=== PATIENT | female | born 1955 | race Caucasian/White ===

== ENCOUNTER 2016-09-16 09:51 | Emergency (ER) | payer BC ==
[2016-09-16] MEDS ORDERED: Ketorolac INJ* 60 MG/2 ML VIAL IM ONE (11:49)
[2016-09-16 11:57] VITALS: BP 133/90
[2016-09-16] MEDS ORDERED: Aspirin Low Dose CHEW TAB* 81 MG ONE (12:04)
[2016-09-16] MEDS ORDERED: Aspirin Low Dose CHEW TAB* 81 MG PO ONE (12:04)
[2016-09-16] MEDS ORDERED: NS 0.9% 1000 ML* 1,000 ML IV SCH (12:15)
--- NOTE | 2016-09-16 12:36 | UC ---
Cardiac HPI - HPI Summary HPI Summary: pt presents with c/o left chest and flank pain, that that began last night and woke her from sleep. Pt deneis injury or trauma, urinary symptoms, hematuria, frequency, urgency or dysuria. pt c/o generalized malaise, and migraine alegria. - History of Current Complaint Chief Complaint: UCGeneralIllness Stated Complaint: LFT SIDE RIB AREA/BACK PAIN Time Seen by Provider: 09/16/16 11:34 - Risk Factors Pulmonary Embolism Risk Factors: Smoking - 40+ years 1-2 ppd Cardiac Risk Factors: Smoking Atrial Fibrillation: Negative TAD Risk Factors: Smoking AMI/ACS Risk Factors: Smoking - Allergy/Home Medications Allergies/Adverse Reactions: Allergies Allergy/AdvReac Type Severity Reaction Status Date / Time No Known Allergies Allergy Verified 09/16/16 11:15 Home Medications: Home Medications Mometasone/Formoter 200/5 MDI* [Dulera 200/5 MDI*] 2 puff INH BID 09/16/16 [ History Confirmed 09/16/16] PMH/Surg Hx/FS Hx/Imm Hx Previously Healthy: Yes - smoker, anorexic in appearance Respiratory History: COPD - possible given smoking history - Surgical History Surgical History: Yes Surgery Procedure, Year, and Place: TONSILLECTOMY A CHILD - Family History Known Family History: Positive: Cardiac Disease - Social History Lives: With Family Alcohol Use: None Substance Use Type: Marijuana Substance Use Comment - Amount & Last Used: OCCASIONAL Smoking Status (MU): Heavy Every Day Tobacco Smoker Type: Cigarettes Amount Used/How Often: 1 ppd Length of Time of Smoking/Using Tobacco: 48 yrs Have You Smoked in the Last Year: Yes Household Exposure Type: Cigarettes Review of Systems Constitutional: Chills, Fatigue, Other - pale, anorexic, 45 kg for weight Skin: Negative Eyes: Negative ENT: Negative Respiratory: Negative Cardiovascular: Chest Pain - chest and flank Gastrointestinal: Negative Genitourinary: Other - left side flank Motor: Negative Neurovascular: Negative Musculoskeletal: Negative Neurological: Headache - migraine Psychological: Negative All Other Systems Reviewed And Are Negative: Yes Physical Exam Triage Information Reviewed: Yes Appearance: Ill-Appearing, Thin Vital Signs: Initial Vital Signs Temp 100 F 09/16/16 11:16 Pulse 110 09/16/16 11:16 Resp 24 09/16/16 11:16 BP 133/90 09/16/16 11:16 Pulse Ox 95 06/05/17 11:16 Vital Signs Reviewed: Yes Eye Exam: Normal Neck exam: Normal Respiratory: Positive: Decreased breath sounds - bilateral bases Cardiovascular Exam: Other Cardiovascular: Positive: Tachycardia, Other: - tachy, irrgualr atrial sound, possible a fib. Abdominal Exam: Other Abdomen Description: Positive: CVA Tenderness (L) Musculoskeletal Exam: Normal Neurological Exam: Normal Psychological Exam: Normal Skin Exam: Normal - Assessment/Plan Course Of Treatment: I ordered an EKG and reviewed it with DR. Carroll, Concern for ST depression in leads 2, 3 and AVF. Also, slight elevation in lead V! and V@. I paged plater apprentice on calll: Dr Armenta for reivew as no prior EKG to compare, he concurrd with findings by DR. Carroll and encouraged transfer to [facility] for Cardio/hemo intervention. I called [facility] ED and spoke with Dr. Stover and agreed with cArdiac findings with EKG and accpeted pt for transfer. - Differential Diagnoses - Chest Pain Differential Diagnosis/HQI/PQRI: Acute SD, Other: - Possible inferior wall SD - Differential Diagnoses - Hypertension Differential Diagnosis/HQI PQRI: Myocardial Infarction, Other - kidney stone - Clinical Impression Provider Diagnoses: possible SD. abnormal EKG. left side chest pain. left side flank pain - Physician Notifications Discussed Patient Care With: Dr. Stover Time Discussed With Above Provider: 12:30 - pt accepted for transfer Instructed by Provider To: Transfer - to [facility] by ambulance ALS Discharge - Discharge Plan Condition: Stable Disposition: TRANS HIGHER LVL OF CARE FAC Patient Education Materials: Tachycardia (ED), Chest Pain (ED), Flank Pain (ED ) Referrals: Lucita Mohamud PA [Primary Care Provider] - If Needed
--- NOTE | 2016-09-16 12:37 | UC ---
Progress - Progress Note Progress Note: Prearrival report from PA at [facility]. Pt presented for flank pain. I looked at the EKG, discussed it with Dr. Armenta. We agreed not to activate STEMI team at this point, reassess on [place] [facility] and[place]or EKG from EMS.
== END 2016-09-16 12:39 | disposition short-term general hospital (02) ==
LOC: UCCORT 09:51
DX: R07.89 Other chest pain (principal); M54.9 Dorsalgia, unspecified; R53.81 Other malaise; G43.909 Migraine, unspecified, not intractable, without status migrainosus; J44.9 Chronic obstructive pulmonary disease, unspecified; R00.0 Tachycardia, unspecified; F17.210 Nicotine dependence, cigarettes, uncomplicated; F12.90 Cannabis use, unspecified, uncomplicated
CPT/HCPCS: 93005; 96360; 96361; 99213; A9270-GY; G0463

== ENCOUNTER 2016-09-16 13:10 | Observation (INO) | payer BC ==
[2016-09-16] MEDS ORDERED: Aspirin Low Dose CHEW TAB* 81 MG PO ONE (13:29)
[2016-09-16] MEDS ORDERED: Nitroglycerin TAB 0.4 MG* 0.4 MG TAB SL ONE (13:45)
--- NOTE | 2016-09-16 13:53 | RAD ---
HISTORY: Chest pain COMPARISONS: None VIEWS:1: Single frontal portable view of the chest at 1:35 PM FINDINGS: LINES AND TUBES: None. CARDIOMEDIASTINAL SILHOUETTE: The cardiomediastinal silhouette is normal for portable technique. PLEURA: The costophrenic angles are sharp. No pleural abnormalities are noted. LUNG PARENCHYMA: There is hyperinflation. There is confluent alveolar opacification of the left lower lung field ABDOMEN: The upper abdomen is clear. There is no subphrenic gas. BONES AND SOFT TISSUES: No bone or soft tissue abnormalities are noted. IMPRESSION: 1. COPD.. 2. LEFT LOWER LUNG ATELECTASIS VERSUS CONSOLIDATION. RECOMMEND FOLLOW-UP UNTIL RESOLUTION TO EXCLUDE UNDERLYING PULMONARY PARENCHYMAL PATHOLOGY
[2016-09-16 13:54] LABS: Mean Corpuscular Hemoglobin 30 pg (27-31)
[2016-09-16 13:59] LABS: Hematocrit 44 % (35-47); Hemoglobin 14.4 g/dl (12.0-16.0); Mean Corpuscular HGB Conc 33 g/dl (31-36); Mean Corpuscular Volume 90 fL (80-97); Mean Platelet Volume 8 um3 (7.4-10.4); Red Blood Count 4.84 10^6/ul (4.0-5.4); Red Cell Distribution Width 13 % (10.5-15); White Blood Count 20.7 10^3/ul (3.5-10.8)
[2016-09-16 14:01] LABS: Add Diff/Slide Review? Slide Review Added; Comments Flag Yes
[2016-09-16 14:40] LABS: ALT 21 U/L (7-52); Alkaline Phosphatase 105 U/L (34-104); BUN/Creatinine Ratio 13.7 (8-20); Blood Urea Nitrogen 10 mg/dL (6-24); CO2 Carbon Dioxide 22 mmol/L (22-32); Calcium 9.3 mg/dL (8.6-10.3); Chloride 99 mmol/L (101-111); EGFR African American 104.9 (>60); EGFR Non-African American 81.6 (>60); Globulin 2.8 g/dL (2-4); Glucose 96 mg/dL (70-100); Sodium 132 mmol/L (133-145); Total Protein 6.8 g/dL (6.4-8.9)
[2016-09-16] MEDS ORDERED: Iohexol 350* (CONTRAST) 500 ML MDV IV ONE (14:48)
--- NOTE | 2016-09-16 15:35 | RAD ---
INDICATION: Pleuritic chest pain. Assess for pulmonary embolism. History of tobacco use and hypertension. COMPARISON: September 16, 2016 chest radiograph TECHNIQUE: Multidetector CT images were obtained from the lung apices to the upper abdomen with 50 mL Omnipaque 350 IV contrast. Pulmonary angiogram protocol. Multiplanar reformation including with maximum intensity projection. REPORT: Elevated lung volumes with mildly coarse interstitial markings and patchy rarefaction secondary to emphysema. 3 mm subpleural nodule junction superior and posterior basal segments RIGHT lower lobe. Consolidation with air bronchograms involving the posterior and lateral basal segments of the LEFT lower lobe. Negative for pleural effusions. Negative for pneumothorax. Negative for lymphadenopathy, cardiomegaly, pericardial effusion. Normal diameter thoracic aorta. Negative for aortic dissection. No filling defects are identified from the main to the subsegmental pulmonary arteries to indicate presence of a pulmonary embolism. Unremarkable Limited images through the upper abdomen. Negative for suspicious focal osseous lesions. IMPRESSION: 1. No evidence for pulmonary embolism. 2. LEFT lower lobe pneumonia primarily involving the posterior lateral basal segments. Radiographic follow-up post therapy suggested to assess for resolution 3. Relative low suspicion 3 mm subpleural nodule at the junction of the superior and posterior basal segments of the RIGHT lower lobe. Given smoking history/risk factor for bronchogenic carcinoma reassessment with noncontrast CT in 12 months time suggested. 4. Stigmata of advanced chronic obstructive pulmonary disease and emphysema. Ref: Michelle H, Amilcar HALL, Danyel Pickett, et al. Guidelines for Management of Small Pulmonary Nodules Detected on CT Scans: A Statement from the Fleischner Society. February 2005 Radiology, 237, [phone].
[2016-09-16] MEDS ORDERED: Azithromycin IV(*) 500 MG in NS 0.9% 250 ML* 250 ML IVPB ONE (15:45)
[2016-09-16] MEDS ORDERED: Morphine INJ* 2 MG/ML 1 ML SYRINGE IV PRN (15:56)
[2016-09-16] MEDS ORDERED: Acetaminophen TAB* 325 MG PO PRN (15:56)
[2016-09-16] MEDS ORDERED: Albuterol/Ipratropium NEB.SOL* Albuterol 2.5 MG/Ipratropium 0.5 MG 3 ML INH PRN (16:17)
[2016-09-16] MEDS ORDERED: NS 0.9% 1000 ML* 1,000 ML IV SCH (16:30)
[2016-09-16] MEDS ORDERED: Nicotine PATCH 21 MG/24 HR* PATCH TRANSDERM SCH (17:00)
--- NOTE | 2016-09-16 18:29 | HP ---
HISTORY AND PHYSICAL: DATE OF ADMISSION: 09/16/16 PRIMARY CARE PHYSICIAN: JESÚS Odell CHIEF COMPLAINT: Left-sided chest pain and flank pain. HISTORY OF PRESENT ILLNESS: Santa Dobbins is a 61-year-old female with a history of current smoking and diagnosis of COPD who presented to [facility], complaining of left lower chest pain and radiating flank pain. The pain was positional, worse with inspiration. The patient also has had poor appetite and nightly fevers for the past 3 days. The patient was seen at [facility] where her EKG showed inferior wall ST depressions. At that point, she was transported via ambulance to the emergency department here. Here, her repeat EKG showed improvement of the ST depressions in the inferior leads. CT angiogram of the chest showed left lower lobe infiltrate. She is going to be admitted with diagnosis of pneumonia and EKG changes. PAST MEDICAL HISTORY: COPD. MEDICATIONS: Include Dulera 200/5 two inhalations b.i.d. ALLERGIES: No known drug allergies. FAMILY HISTORY: Father with history of dementia. The patient's mother's history is unknown. SOCIAL HISTORY: The patient has smoked pack of cigarettes a day when she turned 12 and she is still a current smoker. She denies any alcohol or drug use. 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 REVIEW OF SYSTEMS: Please see history of present illness. The patient's BMI is 16 and when I enquired about her recent weight loss, she stated that she has not lost her weight for approximately a year. She has chronic cough and apparently the cough that she has had in the past several days is actually less prominent than her chronic "smoker's cough" that she usually has. She has had poor appetite and feeling overall weak. Her left flank pain was noted approximately 3 days ago when the fever occurred. All the remaining 14 systems were reviewed with the patient and were otherwise negative. PHYSICAL EXAMINATION GENERAL: This is a very pleasant 61-year-old female who is in no acute distress. The patient is alert, awake, and oriented x3. VITAL SIGNS: Blood pressure of 135/83, heart rate of 88 and regular, respiratory rate 18, oxygen saturation 96% on room air, temperature of 101.8. HEENT: Head: Atraumatic, normocephalic. Eyes: Pupils equal, reactive to light, and accommodation. Oropharynx clear. Mucosa dry. NECK: Supple. No JVD. No bruits bilaterally. RESPIRATORY: Distant breath sounds bilaterally. CARDIOVASCULAR: Regular rate and rhythm. No murmur. ABDOMEN: Soft, nontender. Positive bowel sounds in all 4 quadrants. LOWER EXTREMITIES: There is no edema. Pulses +2 bilaterally. No cyanosis or clubbing. NEUROLOGIC EVALUATION: Speech clear. Cranial nerves II through XII grossly intact. Motor strength is 5/5 bilaterally. PSYCHIATRIC EVALUATION: Oriented x3. Pleasant and cooperative with evaluation with no evidence of anxiety or depression. Please note that the patient has a very thin body habitus. LABORATORY DATA: Show sodium of 132, potassium of 4.4, chloride 99, carbon dioxide 22, BUN 10, creatinine 0.73. Liver functions are unremarkable apart from alkaline phosphatase of 105. Troponin of 0. CBC: White blood cell count of 20.7, hemoglobin of 14.4, hematocrit of 44, and platelets of 179. IMAGING: The patient's CT angiogram of the chest, impression: "No evidence of PE. Left lower lobe pneumonia primarily involving the posterior basal segments. Radiographic followup ____ suggested for resolution. Relative low suspicion 3 mm subpleural nodule at the junction of the superior and posterior basal segment of the right lower lobe given smoking history, risk factors for bronchogenic carcinoma. Reassessment with noncontrast CT in 12 months suggested. Stigmata of advanced COPD and emphysema." The patient's EKG showed sinus arrhythmia with frequent PACs, heart rate of 97 beats per minute with T-wave depression in leads 2, 3, and aVF, less pronounced than the EKG that was obtained prior to this current one just within the past few hours. ASSESSMENT AND PLAN: 1. Left flank pain, daily fevers, and left chest pain: At this point, most likely related to the patient's pneumonia. The pain is positional. The infiltrate is localized in the left lung. The patient is going to be continued on ceftriaxone and azithromycin that was started in the emergency room. Sputum cultures are going to be obtained as well as urine Legionella and streptococcus pneumonia antigen. The patient is going to be placed on intravenous hydration. 2. In regards to the patient's abnormal EKG, the patient denies substernal chest pain. Her EKG appears to be rate related changes, but is still present when the patient's heart rate is lower. The patient has risk factors of smoking history and age. The patient is going to be placed on telemetry monitored bed with followup troponins. I will obtain a transthoracic echocardiogram. At this point due to her ongoing fevers and pneumonia, I will not place the patient on a stress test. The recommendation would be for the patient to have outpatient stress test when she feels better. 3. In regards to smoking, the patient was counseled to quit for approximately 4 - 1/2 minutes. The patient is going to be placed on nicotine replacement therapy. 4. For DVT prophylaxis, the patient is going to be placed on heparin subcutaneously. 5. The patient's code status is full. TIME SPENT: Approximately 62 minutes were spent on admission of this patient, more than half that time was spent [id number] with the patient during the interview and physical exam. CC: JESÚS Odell * [id number]/CPS #: [id number] MTDD
[2016-09-16] MEDS: Mometasone/Formoter 200/5 MDI INH SCH (19:48)
[2016-09-16] MEDS ORDERED: Nicotine Inhaler* 10 MG AMP INH PRN (20:55)
[2016-09-16] MEDS ORDERED: Mouth Piece, Nicotine* 1 EACH CARTRIDGE ONE (22:25)
[2016-09-16] MEDS: Heparin VIAL(*) 5000 UNITS/ML VIAL (FIVE THOUSAND) SUBCUT SCH (22:29)
[2016-09-17] MEDS: Heparin VIAL(*) 5000 UNITS/ML VIAL (FIVE THOUSAND) SUBCUT SCH (05:42)
[2016-09-17 08:20] LABS: Hematocrit 39 % (35-47); Mean Corpuscular HGB Conc 33 g/dl (31-36); Mean Corpuscular Hemoglobin 30 pg (27-31); Mean Corpuscular Volume 90 fL (80-97); Mean Platelet Volume 8 um3 (7.4-10.4); Red Blood Count 4.34 10^6/ul (4.0-5.4); Red Cell Distribution Width 14 % (10.5-15); White Blood Count 12.7 10^3/ul (3.5-10.8)
[2016-09-17 08:34] LABS: BUN/Creatinine Ratio 13.2 (8-20); Calcium 8.7 mg/dL (8.6-10.3); EGFR African American 113.9 (>60); EGFR Non-African American 88.6 (>60); Magnesium 1.9 mg/dL (1.9-2.7); Potassium 3.9 mmol/L (3.5-5.0)
[2016-09-17] MEDS ORDERED: Nicotine PATCH 21 MG/24 HR* PATCH TRANSDERM SCH (09:00)
--- NOTE | 2016-09-17 09:03 | ECHO ---
Patient: LISA CARVAJAL [facility] Rec#: [id number] : 1955 Date: 09/17/2016 Age: 61y Height: 160.02 cm / 63.0 in Weight: 43.09 kg / 95.0 lbs Sex: F BSA: 1.41 Room#: 447 Admit Date#: 09/16/2016 Type: Inpatient Referring: Jacqui Smith MD Reading: Ron Jara MD Associate Professor Of Forestry: Joanna OropezaRDCS,RDMS Transthoracic Echocardiogram Indication: CP, ABN EKG BP: 119/68 HR: 72 Rhythm: NSR Findings History: HTN, heavy smoker. Technical Comments: The study is technically limited due to poor acoustic windows. Completed 0840. Left Ventricle: The left ventricular chamber size is decreased. There is no left ventricular hypertrophy. Global left ventricular wall motion and contractility are within normal limits. The estimated ejection fraction is 55-60%. There is no consistent Doppler evidence of clinically significant diastolic dysfunction. Left Atrium: The left atrial chamber size is normal. Right Ventricle: The right ventricular chamber size and systolic function are within normal limits. Right Atrium: The right atrium is not well visualized. Aortic Valve: The aortic valve structure is not well visualized. There is no evidence of aortic valve thickening. There is no evidence of aortic regurgitation. There is no evidence of aortic stenosis. Mitral Valve: The mitral valve leaflets appear normal. There is no evidence of mitral regurgitation. There is no evidence of mitral stenosis. Tricuspid Valve: The tricuspid valve structure is not well visualized.Best seen in subcostal views. The tricuspid valve leaflets are mildly thickened. There is mild to moderate tricuspid regurgitation. There is evidence of mild to moderate pulmonary hypertension. Pulmonic Valve: There is no evidence of pulmonic valve thickening. There is no evidence of pulmonic regurgitation. Pericardium: There is no significant pericardial effusion. Aorta: The ascending aorta is not well visualized. The aortic arch is not well visualized. The aortic root is normal in size. Pulmonary Artery: The main pulmonary artery is not well visualized. Venous: The inferior vena cava appears normal in size. There is a greater than 50% respiratory change in the inferior vena cava dimension. Conclusions The study is technically limited due to poor acoustic windows. Completed 0840. Global left ventricular wall motion and contractility are within normal limits. The estimated ejection fraction is 55-60%. The right ventricular chamber size and systolic function are within normal limits. There is mild thickening of the tricuspid vavle leafltets with mild to moderate tricuspid regurgitation. There is evidence of mild to moderate pulmonary hypertension. No reports of prior studies are offered for comparison. Measurements Name Value Normal Range RVIDd (AP) 2D 2.2 cm (0.9 - 2.6) RVDdMajor (2D) 2 cm (2.2 - 4.4) RAd ISD 4CH 3.4 cm (3.4 - 4.9) RA (A4C)W 3.9 cm (2.9 - 4.6) IVSd (2D) 0.8 cm (0.6 - 1) LVPWd (2D) 0.7 cm (0.6 - 1) LVIDd (2D) 2.9 cm (3.6 - 5.4) LVIDs (2D) 2.3 cm - LV FS (2D) 20 % (25 - 45) Aortic Annulus 1.9 cm (1.4 - 2.6) Ao root diameter (2D) 2.9 cm (2.1 - 3.5) LA dimension (AP) 2D 2.1 cm (2.3 - 3.8) LAd ISD 4CH 3.7 cm (2.9 - 5.3) LA ISD 4CH W 3.9 cm (2.5 - 4.5) Name Value Normal Range MV E-wave Vmax 0.8 m/sec - MV deceleration time 233.8 msec - MV A-wave Vmax 0.6 m/sec - MV E:A ratio 1.4 ratio - LV lateral e' Vmax 0.08 m/sec - LV E:e' lateral ratio 10 ratio - Name Value Normal Range AV Vmax 1.1 m/sec - AV VTI 23.1 cm - AV peak gradient 5 mmHg - AV mean gradient 2.2 mmHg - LVOT Vmax 1 m/sec - LVOT VTI 20.8 cm - LVOT peak gradient 4 mmHg - LVOT mean gradient 1.9 mmHg - Name Value Normal Range TR Vmax 3 m/sec - TR peak gradient 36 mmHg - RAP 8 mmHg - RVSP 44 mmHg - IVC diameter 1.8 cm - Name Value Normal Range PV Vmax 0.7 m/sec - PV peak gradient 2 mmHg -
[2016-09-17] MEDS: Mometasone/Formoter 200/5 MDI INH SCH (09:21)
--- NOTE | 2016-09-17 10:10 | ED ---
edgard Giron Timothy, scribed for Bill Stover MD on 09/16/16 at 1329 . HPI Chest Pain - HPI Summary HPI Summary: Santa Dobbins is a 61 yo female presenting to [facility] for 2/10 intermittent left sided CP since yesterday evening, returning at 0600 this morning, sent here by [facility] for concern for STEMI. She states that movement and deep breaths increase her CP. She denies any pain in her back. She denies any recent illnesses or travel in a car or otherwise. Her MHx includes HTN, osteoperosis. - History of Current Complaint Time Seen by Provider: 09/16/16 13:10 Hx Obtained From: Patient, EMS Onset/Duration: Started Hours Ago, Still Present Time of Onset: 06:00 - returned this morning Timing: Intermittent Initial Severity: Moderate Current Severity: Moderate Pain Intensity: 2 Pain Scale Used: 0-10 Numeric Chest Pain Location: Left Lateral Chest Pain Radiates: No Aggravating Factor(s): Movement, Deep Breaths Associated Signs and Symptoms: Positive: Chest Pain - Allergy/Home Medications Allergies/Adverse Reactions: Allergies Allergy/AdvReac Type Severity Reaction Status Date / Time No Known Allergies Allergy Verified 09/16/16 11:15 PMH/Surg Hx/FS Hx/Imm Hx Cardiovascular History: Reports: Hx Hypertension Musculoskeletal History: Reports: Hx Osteoporosis Denies: Hx Rheumatoid Arthritis - Surgical History Surgery Procedure, Year, and Place: TONSILLECTOMY A CHILD Infectious Disease History: No Infectious Disease History: Denies: Traveled Outside the [place] in Last 30 Days - Family History Known Family History: Positive: Unknown - Pt cannot recall other FHx, Cardiac Disease - Social History Alcohol Use: None Substance Use Type: Reports: Marijuana Substance Use Comment - Amount & Last Used: daily usage Smoking Status (MU): Heavy Every Day Tobacco Smoker Type: Cigarettes Amount Used/How Often: 1 ppd Length of Time of Smoking/Using Tobacco: 48 yrs Have You Smoked in the Last Year: Yes Review of Systems Constitutional: Negative Negative: Fever, Chills Eyes: Negative Negative: Erythema ENT: Negative Negative: Sore Throat Positive: Chest Pain Respiratory: Negative Negative: Shortness Of Breath, Cough Gastrointestinal: Negative Negative: Abdominal Pain, Vomiting, Nausea Genitourinary: Negative Negative: dysuria, hematuria Musculoskeletal: Negative Negative: Myalgia, Edema - legs Skin: Negative Negative: Rash Neurological: Negative - no dizziness Psychological: Normal All Other Systems Reviewed And Are Negative: Yes Physical Exam - Summary Physical Exam Summary: Constitutional: Well-developed, Well-nourished, Alert. (-) Distressed Skin: Warm, Dry HENT: Normocephalic; Atraumatic Eyes: Conjunctiva normal Neck: Musculoskeletal ROM normal neck. (-) JVD, (-) Stridor, (-) Tracheal deviation Cardio: Rhythm regular, rate normal, Heart sounds normal; Intact distal pulses; The pedal pulses are 2+ and symmetric. Radial pulses are 2+ and symmetric. (-) Murmur. There is no reproducible chest pain with palpation. Pulmonary/Chest wall: Effort normal. (-) Respiratory distress, (-) Wheezes, (-) Rales. Extrememly diminished airflow Abd: Soft, (-) Tenderness, (-) Distension, (-) Guarding, (-) Rebound Musculoskeletal: (-) Edema Lymph: (-) Cervical adenopathy Neuro: Alert, Oriented x3 Psych: Mood and affect Normal Triage Information Reviewed: Yes Vital Signs On Initial Exam: Initial Vitals Temp Pulse Resp BP Pulse Ox 101.8 F 90 25 135/81 96 09/16/16 13:19 09/16/16 13:19 09/16/16 13:19 09/16/16 13:19 09/16/16 13:19 Vital Signs Reviewed: Yes Diagnostics - Vital Signs Vital Signs Temp Pulse Resp BP Pulse Ox 09/16/16 13:19 101.8 F 90 25 135/81 96 - Laboratory Result Diagrams: 09/16/16 12:15 09/16/16 13:20 Lab Statement: Any lab studies that have been ordered have been reviewed, and results considered in the medical decision making process. - Radiology CXR Xray Interpretation: Positive (See Comments) - IMPRESSION: 1. COPD.. 2. LEFT LOWER LUNG ATELECTASIS VERSUS CONSOLIDATION. RECOMMEND FOLLOW-UP UNTIL RESOLUTION TO EXCLUDE UNDERLYING PULMONARY PARENCHYMAL PATHOLOGY Radiology Interpretation Completed By: Radiologist - CT Chest/Thorax CTA CT Interpretation: Positive (See Comments) CT Interpretation Completed By: Radiologist - 1. No evidence for pulmonary embolism. 2. LEFT lower lobe pneumonia primarily involving the posterior lateral basal segments. Radiographic follow-up post therapy suggested to assess for resolution 3. Relative low suspicion 3 mm subpleural nodule at the junction of the superior and posterior basal segments of the RIGHT lower lobe. Given smoking history/risk factor for bronchogenic carcinoma reassessment with noncontrast CT in 12 months time suggested. 4. Stigmata of advanced chronic obstructive pulmonary disease and emphysema. - EKG 1314 Cardiac Rate: NL - 91 BPM EKG Interpretation: NSR @ 91 BPM, ST depressions in inferior leads, no STEMI Re-Evaluation - Re-Evaluation First Eval Re-Evaluation Time: 15:50 Change: Unchanged Comment: Reviewed lab and imaging study results, as well as recommendation of admission by Dr. Smith. Pt is agreeable to this plan. Chest Pain Course/Dx - Course Assessment/Plan: Santa Dobbins is a 61 yo female presenting to [facility] with 2/10 intermittent CP since yesterday evening, presenting to [facility] from [facility] for r/o STEMI. Her medication list has been reviewed this visit. In the ED course she received ASA and NTG. Her EKG suggests no STEMI, but ST depressions in inferior leads. Her CXR suggests COPD and left lower lung atelectasis versus consolidation with a recommendation for follow up to exclude underlying pulmonary parenchymal pathology. Her Chest/Thorax CTA suggests. 1. No evidence for pulmonary embolism. 2. LEFT lower lobe pneumonia primarily involving the posterior lateral basal segments. Radiographic follow-up post therapy suggested to assess for resolution. 3. Relative low suspicion 3 mm subpleural nodule at the junction of the superior and. posterior basal segments of the RIGHT lower lobe. Given smoking history/risk factor for. bronchogenic carcinoma reassessment with noncontrast CT in 12 months time suggested. 4. Stigmata of advanced chronic obstructive pulmonary disease and emphysema. After clinical examination and review of her lab and imaging studies , as well as discussion with Dr. Smith, she will be admitted to [facility] with community acquired PNA and abnormal EKG. - Diagnoses Provider Diagnoses: Community acquired pneumonia, EKG abnormalities - Provider Notifications Discussed Care Of Patient With: Jacqui Smith - Discussed Pt condition, accepts Pt for admission Time Discussed With Above Provider: 15:45 Discharge - Discharge Plan Condition: Stable Disposition: ADMITTED TO [facility] Discharge Disposition Comment: admission for community acquired pneumonia and EKG abnormalities The documentation as recorded by the edgard laguna Timothy accurately reflects the service I personally performed and the decisions made by , Bill Stover MD.
[2016-09-17 12:56] VITALS: BP 112/65
[2016-09-17] MEDS ORDERED: Azithromycin IV(*) 500 MG in NS 0.9% 250 ML* 250 ML IVPB SCH (16:00)
[2016-09-17] MEDS ORDERED: cefTRIAXone VIAL(*) 1,000 MG in NS 0.9% 50 ML* 50 ML IVPB SCH (17:00)
[2016-09-17] MEDS ORDERED: Nicotine Patch Removal NOTE PATCH OFF SCH (21:00)
--- NOTE | 2016-09-17 21:51 | DS ---
CC: JESÚS Odell * DISCHARGE SUMMARY: DATE OF ADMISSION: 09/16/16 DATE OF DISCHARGE: 09/17/16 PRIMARY CARE PROVIDER: JESÚS Odell DISCHARGE DIAGNOSES: 1. Left lower lobe pneumonia. 2. 3 mm subpleural nodule at right lower lobe. 3. Abnormal EKG. 4. Pleuritic chest pain due to pneumonia. SECONDARY DIAGNOSIS: Chronic obstructive pulmonary disease. MEDICATIONS AT DISCHARGE: Include: 1. Azithromycin 250 mg daily for a total of 4 days. 2. Cefdinir 300 mg b.i.d. for 7 days total. 3. Dulera 200/5 mcg 2 inhalations b.i.d., unchanged from home. LABORATORY DATA AND STUDIES: Performed during the hospital stay included: On 09/17/16, white blood cell count of 12.7, hemoglobin of 13.0, hematocrit of 39, and platelets of 149. Sodium was 134, potassium 3.9, chloride 103, carbon dioxide 22, BUN 9, creatinine 0.68. Troponin of 0. CT angiogram of the chest obtained at admission. Impression: No evidence of PE. Left lower lobe pneumonia primarily involving the posterior lateral basal segments. Radiographic followup post therapy suggested to assess resolution. Relative low suspicion 3 mm subpleural nodule at the junction of the superior and posterior basal segments of the right lower lobe. Given smoking history and risk factors for bronchogenic carcinoma, reassessment with noncontrast CT in 12 months time suggested. Stigmata of advanced chronic obstructive pulmonary disease and emphysema. Transthoracic echocardiogram obtained on 09/17/16 showed EF of 55% to 60% with global left ventricular wall motion and contractility within normal limits. There was mild thickening of the tricuspid valve leaflets with mbmz-[id number] tricuspid regurgitation and evidence of owzs-ks-wtrzywog pulmonary hypertension. HOSPITALIZATION COURSE: Santa Dobbins is a 61-year-old female with history of COPD who presented complaining of left-sided pleuritic flank pain and left lower chest pain. She initially presented to [facility], where obtained EKG showed inferior wall ST depression. At that point, she was transferred to [facility] Emergency Department via ambulance for further management. Here it was noted that her EKG changes were improved, although she still continued to have some depressions in leads II, III, and aVF. The patient herself complained of left flank pain and left lower chest pain. CT angiogram of the chest was obtained, showed pneumonia in the area indicated in the left lower lung. At this point, the suspicion was this patient most likely had pleurisy from the pneumonia and it was not cardiac related, although the patient does have EKG changes. She was observed on telemetry monitored bed and had no episodes of arrhythmia. Her troponins were negative throughout. Her transthoracic echocardiogram showed no wall motion abnormality and good EF and ryof-kp-bdgprmlk pulmonary hypertension. At this point, due to that, the patient had marked leukocytosis, fever, and pneumonia at presentation and was trying to get over infection during her hospital stay. It was not suggested for her to undergo a cardiac stress, but it is recommended for her to have an outpatient cardiac stress test offered to her after she sees a primary care provider. In regards to 3 mm right lung nodule as well as left lower lobe pneumonia, the patient was recommended to have a follow up CT in appropriately 3 to 6 months and in 12 months in regards to her 3 mm nodule. Multiple times during her hospital stay, the patient was encouraged to stop smoking and counseled about it. PHYSICAL EXAMINATION: Vital Signs: At the time of discharge, blood pressure of 97/57, heart rate of 79 and regular, respiratory rate 16, oxygen saturation 98% on room air, temperature 98.5. General: The patient is a very pleasant 61- year-old female, who is in no acute distress. Alert, awake, and oriented x3. HEENT: Head is atraumatic, normocephalic. Eyes: Pupils equal and reactive to light and accommodation. Oropharynx clear. Mucosa moist. Neck: Supple. No JVD. No bruits bilaterally. Cardiovascular: Regular rate and rhythm. No murmurs. Respiratory: Clear to auscultation bilaterally. Distant breath sounds in the left lower lobe. Abdomen: Soft, nontender. Bowel sounds present in all 4 quadrants. Extremities: There is no edema. Pulses +2 bilaterally. No clubbing or cyanosis. Neuro Evaluation: Speech clear. Cranial nerves II through XII grossly intact. Motor strength is 5/5 bilaterally. Please note this is a short summary of the patient's hospital stay. Please refer to further medical records for details. [id number] #: [id number] MTDD
== END 2016-09-17 13:20 | disposition home or self-care (01) ==
LOC: ED 13:10 → MEDTELE 15:54
PROVIDERS: ADMIT Internal Medicine; ATTEND Internal Medicine
DX: J18.9 Pneumonia, unspecified organism (principal); R94.31 Abnormal electrocardiogram [ECG] [EKG]; R07.89 Other chest pain; F17.210 Nicotine dependence, cigarettes, uncomplicated; R91.1 Solitary pulmonary nodule; R10.84 Generalized abdominal pain; Z87.09 Personal history of other diseases of the respiratory system
CPT/HCPCS: 36415; 71010; 71275; 80048; 80053; 83605; 83735; 84484; 85025; 87899; 93005; 93306; 99283; A9270-GY; G0378; J0456; J0696; J1644; Q9967

== ENCOUNTER 2018-01-30 21:35 | Emergency (ER) | payer BC, MEDICAID ==
--- NOTE | 2018-01-30 22:23 | ED ---
HPI Chest Pain - HPI Summary HPI Summary: This patient is a 62 year old female BIBA to [facility] accompanied by with a chief complaint of chest pain since approx. 1600 today. Patient states she felt chest pain under her left breast, which lasted about an hour before dissipating. The pain returned after about 2 hours in her back, left shoulder blade and did not go away, moving to her chest intermittently. The pain is rated 3/10 in severity. Symptoms aggravated by deep breaths. Symptoms alleviated by nothing. Patient denies SOB, vomiting, nausea - History of Current Complaint Chief Complaint: EDShortnessOfBreath Time Seen by Provider: 01/30/18 22:14 Hx Obtained From: Patient Onset/Duration: Started Hours Ago, Still Present Timing: Constant Initial Severity: Mild Current Severity: Mild Pain Intensity: 3 Pain Scale Used: 0-10 Numeric Chest Pain Location: Diffuse, Left Anterior Chest Pain Radiates: Yes Chest Pain Radiates To:: Back Aggravating Factor(s): Deep Breaths Alleviating Factor(s): Nothing Associated Signs and Symptoms: Positive: Negative - SOB, vomiting, nausea - Allergy/Home Medications Allergies/Adverse Reactions: Allergies Allergy/AdvReac Type Severity Reaction Status Date / Time No Known Allergies Allergy Verified 09/16/16 11:15 Home Medications: Home Medications Albuterol HFA INHALER* [Ventolin HFA Inhaler*] 1 puff PO QID PRN 01/30/18 [ History Confirmed 01/30/18] PMH/Surg Hx/FS Hx/Imm Hx Previously Healthy: No Cardiovascular History: Reports: Hx Hypertension Musculoskeletal History: Reports: Hx Osteoporosis Denies: Hx Rheumatoid Arthritis Sensory History: Reports: Hx Contacts or Glasses Denies: Hx Hearing Aid Opthamlomology History: Reports: Hx Contacts or Glasses - Surgical History Surgery Procedure, Year, and Place: TONSILLECTOMY A CHILD Infectious Disease History: No Infectious Disease History: Denies: Traveled Outside the [place] in Last 30 Days - Family History Known Family History: Positive: Cardiac Disease - Social History Lives: With Family Alcohol Use: None Hx Substance Use: Yes Substance Use Type: Reports: Marijuana Substance Use Comment - Amount & Last Used: daily usage Hx Tobacco Use: Yes Smoking Status (MU): Heavy Every Day Tobacco Smoker Type: Cigarettes Amount Used/How Often: 1 ppd Length of Time of Smoking/Using Tobacco: 48 yrs Have You Smoked in the Last Year: Yes Review of Systems Negative: Fever Positive: Chest Pain Negative: Shortness Of Breath Negative: Vomiting, Nausea Positive: Other - back pain All Other Systems Reviewed And Are Negative: Yes Physical Exam - Summary Physical Exam Summary: Appearance: Thin, almost cachectic appearance, lying in bed comfortable Skin: Warm, dry, no obvious rash Eyes: sclera anicteric, no conjunctival pallor ENT: mucous membranes moist Neck: deferred Respiratory: Distant breath sounds, unable to take a deep breath due to pain. Cardiovascular: Appears well perfused, pulses are nml Abdomen: deferred Musculoskeletal: Moving all 4 extremities without obvious discomfort, no swelling in lower extremities noted. Neurological: Awake and alert, mentation is normal, speech is fluent and appropriate Psychiatric: affect is normal, does not appear anxious or depressed Triage Information Reviewed: Yes Vital Signs On Initial Exam: Initial Vitals Temp Pulse Resp BP Pulse Ox 100.8 F 86 18 128/78 94 01/30/18 22:11 01/30/18 22:11 01/30/18 22:11 01/30/18 22:11 01/30/18 22:11 Vital Signs Reviewed: Yes Diagnostics - Vital Signs Vital Signs Temp Pulse Resp BP Pulse Ox 01/30/18 22:11 100.8 F 86 18 128/78 94 - Laboratory Result Diagrams: 01/30/18 22:37 01/30/18 22:37 Lab Statement: Any lab studies that have been ordered have been reviewed, and results considered in the medical decision making process. - Radiology CXR Xray Interpretation: No Acute Changes - CXR reveals, per radiologist, No Acute Disease. ED physician has reviewed this radiology report. Radiology Interpretation Completed By: ED Physician, Radiologist - CT CT Chest/Thorax CT Interpretation: Positive (See Comments) - CT Chest/Thorax reveals, per radiologist, IMPRESSION: 1. Evidence of COPD with minimal diffuse bullous change in mild interstitial prominence and scar. There is decreased left lower lobe infiltrate and consolidation since 09/16/2016. 2. Otherwise negative CTA chest. No acute interval pulmonary embolism is identified. No gross or obvious aortic dissection is identified, particularly the distal to the mid arch. Artifact and image degradation precludes detailed evaluation of the ascending thoracic aorta. ED physician has reviewed this radiology report. CT Interpretation Completed By: Radiologist Chest Pain Course/Dx - Course Course Of Treatment: This is a 62-year-old woman with a history of abrupt onset of migratory and pleuritic chest pain at about 4:00 this past afternoon. She has cardiac risk factors as well as respecters for lung disease. The abruptness and acuity of the complaints was quite concerning to me so I was fairly aggressive in her workup, pursuing CT angiogram of the chest despite a normal d-dimer. Thoracic aortic dissection while in, and is certainly consideration with abrupt pain in the chest rating to the back. Fortunately this study was negative, nor did it show any parenchymal lung disease noted to account for her symptoms, though she does certainly have findings consistent with COPD. At this point I feel we have ruled out any serious pathology, and she will be treated symptomatically. I instructed her to return if her symptoms worsen or otherwise change. If she is not feeling much better by Friday she should see her primary care doctor. Assessment/Plan: This patient is a 62 year old female BIBA to [facility] accompanied by with a chief complaint of chest pain since approx. 1600 today. Patient states she felt chest pain under her left breast, which lasted about an hour before dissipating. CXR reveals, per radiologist, No Acute Disease. ED physician has reviewed this radiology report. CT Chest/Thorax reveals, per radiologist, IMPRESSION: 1. Evidence of COPD with minimal diffuse bullous change in mild interstitial. prominence and scar. There is decreased left lower lobe infiltrate and. consolidation since 09/16/2016. 2. Otherwise negative CTA chest. No acute interval pulmonary embolism is. identified. No gross or obvious aortic dissection is identified, particularly. the distal to the mid arch. Artifact and image degradation precludes detailed. evaluation of the ascending thoracic aorta. ED physician has reviewed this radiology report. Bloodwork Obtained. Urinalysis Obtained. Patient will be discharged with a dx of Chest wall pain and a prescription for Zofran and oxycodone. Patient is advised to follow up with PCP in 3 days. The patient is agreeable with this plan. - Diagnoses Provider Diagnoses: Pleuritic chest pain Discharge - Sign-Out/Discharge Documenting (check all that apply): Patient Departure - Discharge Plan Condition: Good Disposition: HOME Prescriptions: Ondansetron [Zofran Odt] 4 mg PO Q6HR PRN #12 tab.rapdis PRN Reason: Nausea Oxycodone HCl/Acetaminophen [Percocet 5-325 mg Tablet] 1 each PO Q4HR PRN #8 tablet MDD 4 PRN Reason: Pain Patient Education Materials: Chest Wall Pain (ED) Referrals: Lucita Mohamud PA [Primary Care Provider] - 3 Days (if not improving) - Billing Disposition and Condition Condition: GOOD Disposition: Home - Attestation Statements Document Initiated by Scribe: Yes Documenting Scribe: Rishabh Huang Provider For Whom Scribe is Documenting (Include Credential): Luis A Vang MD Scribe Attestation: IRisahbh scribed for Luis A Vang MD on 02/02/18 at 1355. Scribe Documentation Reviewed: Yes Provider Attestation: The documentation as recorded by the Rishabh laguna accurately reflects the service I personally performed and the decisions made by me, Luis A Vang MD
[2018-01-30] MEDS ORDERED: cefTRIAXone(*) 1 GM in NS 0.9% 50 ML* 50 ML IVPB ONE (22:26)
[2018-01-30] MEDS ORDERED: NS 0.9% 1000 ML*IV.FLUID IV ONE (22:26)
[2018-01-30] MEDS ORDERED: Azithromycin IV(*) 500 MG in NS 0.9% 250 ML* 250 ML IVPB ONE (22:26)
[2018-01-30 22:55] LABS: ABS Basophils 0.1 10^3/ul (0-0.2); ABS Eosinophils 0 10^3/ul (0-0.6); ABS Monocytes 0.8 10^3/ul (0-0.8); ABS Neutrophils 10.6 10^3/ul (1.5-7.7); ABS Nucleated RBC 0 10^3/ul; Eosinophil % 0.4 % (0-6); Hematocrit 40 % (35-47); Hemoglobin 13.3 g/dl (12.0-16.0); Lymphocyte % 8.3 % (25-47); Mean Corpuscular HGB Conc 33 g/dl (31-36); Mean Corpuscular Hemoglobin 30 pg (27-31); Mean Corpuscular Volume 91 fL (80-97); Mean Platelet Volume 7.6 um3 (7.4-10.4); Nucleated Red Blood Cells % 0; Platelet Count 165 10^3/ul (150-450); Red Cell Distribution Width 14 % (10.5-15); White Blood Count 12.5 10^3/ul (3.5-10.8)
[2018-01-30] MEDS ORDERED: Morphine INJ* 4 MG/ML 1 ML SYRINGE (NEW SYRINGE VERSION) IV ONE (23:00)
[2018-01-30 23:04] LABS: INR 0.98 (0.77-1.02)
[2018-01-30 23:06] LABS: EGFR Non-African American 73.2 (>60)
[2018-01-30] MEDS ORDERED: Morphine VIAL* 4 MG/ML VIAL (1 ml vial) IV ONE (23:10)
[2018-01-30 23:51] LABS: Urine Appearance Clear; Urine Blood 2+ (Negative); Urine Color Yellow; Urine Ketones Negative (Negative); Urine Protein Negative (Negative); Urine Red Blood Cell 1+(3-5/hpf) (Absent); Urine Specific Gravity 1.008 (1.010-1.030); Urine Urobilinogen Negative (Negative); Urine White Blood Cell Absent (Absent)
[2018-01-31] MEDS ORDERED: Iohexol 350* (CONTRAST) 500 ML MDV IV ONE ×2 (01:32→02:17)
[2018-01-31] MEDS: Morphine INJ* 4 MG/ML 1 ML SYRINGE (NEW SYRINGE VERSION) IV PRN ×2 (01:40→03:55)
--- NOTE | 2018-01-31 03:00 | RAD ---
EXAM: CT Angiography Chest With Intravenous Contrast EXAM DATE/TIME: 01/31/2018 2:15 AM CLINICAL HISTORY: 62 years old, female; Pain; Chest pain; Additional info: Abrupt pleuritic cp, assess for dissection/pe TECHNIQUE: Axial computed tomographic angiography images of the chest with intravenous contrast using CT angiography protocol. All CT scans at this facility use at least one of these dose optimization techniques: automated exposure control; mA and/or kV adjustment per patient size (includes targeted exams where dose is matched to clinical indication); or iterative reconstruction. Coronal and sagittal reformatted images were created and reviewed. MIP reconstructed images were created and reviewed. CONTRAST: 99 ml of OMNIPAQUE 350 administered intravenously. COMPARISON: CTA CHEST CTA CHEST 09/16/2016 2:57 PM FINDINGS: Pulmonary arteries: The main pulmonary artery measures 22 mm. No pulmonary embolism is identified. Aorta: The ascending thoracic aorta measures 27 mm. No gross or obvious aortic dissection is identified, particularly distal to the mid arch. Artifact and image degradation precludes detailed evaluation of the ascending thoracic aorta. Lungs: Minimal diffuse bullous change and mild interstitial prominence and scar which is greatest in the subpleural lateral left lower lobe and apices. There is hyperinflation. Pleural space: Normal. No pneumothorax. No pleural effusion. Heart: Normal. No cardiomegaly. No pericardial effusion. Bones/joints: Unremarkable. No acute fracture. Soft tissues: Unremarkable. Lymph nodes: Unremarkable. No enlarged lymph nodes. IMPRESSION: 1. Evidence of COPD with minimal diffuse bullous change in mild interstitial prominence and scar. There is decreased left lower lobe infiltrate and consolidation since 09/16/2016. 2. Otherwise negative CTA chest. No acute interval pulmonary embolism is identified. No gross or obvious aortic dissection is identified, particularly the distal to the mid arch. Artifact and image degradation precludes detailed evaluation of the ascending thoracic aorta. To contact [facility] with a general question: [facility] - [phone] For direct physician to physician contact: Physician Hotline - [phone] [facility] ([facility] Facility ID #[id number])
[2018-01-31] MEDS ORDERED: Ondansetron INJ* 2 MG/ML VIAL ONE (03:45)
[2018-01-31] MEDS ORDERED: Ondansetron INJ* 2 MG/ML VIAL IV ONE (03:55)
[2018-01-31] MEDS ORDERED: Ondansetron ODT TAB* 4 MG ONE (06:04)
[2018-01-31 06:55] VITALS: BP 102/71
--- NOTE | 2018-01-31 08:14 | RAD ---
HISTORY: fever,left pleuritic chest pain COMPARISONS: September 16, 2016 VIEWS: 4: Frontal dual-energy and lateral views of the chest. FINDINGS: CARDIOMEDIASTINAL SILHOUETTE: The cardiomediastinal silhouette is normal. MELANIE: The melanie are normal. PLEURA: The costophrenic angles are sharp. No pleural abnormalities are noted. LUNG PARENCHYMA: There is hyperinflation with flattening of the diaphragm and expansion of the AP diameter of the chest. ABDOMEN: The upper abdomen is clear. There is no subphrenic gas. BONES AND SOFT TISSUES: No bone or soft tissue abnormalities are noted. OTHER: None. IMPRESSION: HYPERINFLATION, CONSISTENT WITH COPD. NO ACTIVE CARDIOPULMONARY DISEASE. R0
== END 2018-01-31 06:55 | disposition home or self-care (01) ==
LOC: ED 21:35
DX: R07.81 Pleurodynia (principal); M54.9 Dorsalgia, unspecified; F17.210 Nicotine dependence, cigarettes, uncomplicated
CPT/HCPCS: 36415; 71046; 71275; 80053; 81003; 81015; 83605; 84484; 85025; 85379; 85610; 87040; 96365; 96366; 96375; 96376; 99284; A9270-GY; J0456; J0696; J2270; J2405; Q9967

== ENCOUNTER 2019-05-30 19:54 | Emergency (ER) | payer OTHER ==
[2019-05-30 20:19] LABS: ABS Basophils 0.1 10^3/ul (0-0.2); ABS Lymphocytes 1.2 10^3/ul (1.0-4.8); ABS Monocytes 1.2 10^3/ul (0-0.8); ABS Neutrophils 14.6 10^3/ul (1.5-7.7); Eosinophil % 0.2 %; Hematocrit 42 % (35-47); Hemoglobin 13.9 g/dL (12.0-16.0); Lymphocyte % 7.1 %; Mean Corpuscular HGB Conc 34 g/dL (31-36); Mean Corpuscular Hemoglobin 30 pg (27-31); Mean Corpuscular Volume 90 fL (80-97); Mean Platelet Volume 7.5 fL (7.4-10.4); Platelet Count 180 10^3/uL (150-450); Red Blood Count 4.63 10^6 /uL (3.70-4.87); Red Cell Distribution Width 14 % (10-15); White Blood Count 17.2 10^3/uL (3.5-10.8)
[2019-05-30 20:24] LABS: INR 1.18 (0.82-1.09)
[2019-05-30 20:47] LABS: Albumin 4.3 g/dL (3.2-5.2); Calcium 9.5 mg/dL (8.6-10.3); Potassium 4.1 mmol/L (3.5-5.0); Total Bilirubin 0.8 mg/dL (0.2-1.0)
[2019-05-30 20:53] LABS: Albumin/Globulin Ratio 1.4 (1-3); BUN/Creatinine Ratio 15.7 (8-20); EGFR African American 84.3 (>60); EGFR Non-African American 69.7 (>60); Total Protein 7.3 g/dL (6.4-8.9)
[2019-05-30] MEDS ORDERED: Iohexol 350* (CONTRAST) 500 ML MDV IV ONE (21:30)
--- NOTE | 2019-05-30 21:49 | ED ---
HPI Chest Pain - HPI Summary HPI Summary: 64 y/o female w hx COPD presented to [facility] for chest pain that developed today. Last night felt like she was getting a cold and took Nyquil before going to bed. She had chills but no fever. Today her left shoulder began to hurt when breathing, which developed into pleuritic CP. Certain positions alleviated the pain but it is now more persistent. Pt notes hx of COPD and chronic night sweats but denies hx blood clots and cardiac hx. She has had no recent weight loss or gain. Medications reviewed. - History of Current Complaint Chief Complaint: EDChestPainROMI Time Seen by Provider: 05/30/19 20:03 Hx Obtained From: Patient, Family/Staffing Account Manager Current Severity: Moderate Pain Intensity: 4 Pain Scale Used: 0-10 Numeric Character: Other: - when breathing Aggravating Factor(s): Deep Breaths Alleviating Factor(s): Position Associated Signs and Symptoms: Positive: Chest Pain - Allergy/Home Medications Allergies/Adverse Reactions: Allergies Allergy/AdvReac Type Severity Reaction Status Date / Time No Known Allergies Allergy Verified 09/16/16 11:15 PMH/Surg Hx/FS Hx/Imm Hx Endocrine/Hematology History: Denies: Hx Diabetes Cardiovascular History: Reports: Hx Hypertension History: Denies: Hx Renal Disease Musculoskeletal History: Reports: Hx Osteoporosis Denies: Hx Rheumatoid Arthritis Sensory History: Reports: Hx Contacts or Glasses Denies: Hx Hearing Aid Opthamlomology History: Reports: Hx Contacts or Glasses - Surgical History Surgery Procedure, Year, and Place: TONSILLECTOMY A CHILD Infectious Disease History: No Infectious Disease History: Denies: Traveled Outside the [place] in Last 30 Days - Family History Known Family History: Positive: Cardiac Disease - Social History Alcohol Use: None Hx Substance Use: Yes Substance Use Type: Reports: Marijuana Substance Use Comment - Amount & Last Used: daily usage Hx Tobacco Use: Yes Smoking Status (MU): Heavy Every Day Tobacco Smoker Type: Cigarettes Amount Used/How Often: 1 ppd Length of Time of Smoking/Using Tobacco: 48 yrs Have You Smoked in the Last Year: Yes Review of Systems Positive: Chest Pain Psychological: Normal All Other Systems Reviewed And Are Negative: Yes Physical Exam - Summary Physical Exam Summary: Constitutional: Thin, chronically ill appearing, Alert. (-) Distressed Skin: Warm, Dry HENT: Normocephalic; Atraumatic Eyes: Conjunctiva normal Neck: Musculoskeletal ROM normal neck. (-) JVD, (-) Stridor, (-) Nuchal rigidity Cardio: Rhythm regular, rate tachycardic, Heart sounds normal; Intact distal pulses; Radial pulses are 2+ and symmetric. (-) Murmur Pulmonary/Chest wall: Effort normal. (-) Respiratory distress, (-) Wheezes, (-) Rales Abd: Soft, (-) tenderness, (-) Distension, (-) Guarding, (-) Rebound Musculoskeletal: (-) Edema, no chest wall, shoulder/clavicular tenderness. Neuro: Alert, Oriented x3 Psych: Mood and affect Normal Triage Information Reviewed: Yes Vital Signs On Initial Exam: Initial Vitals Temp Pulse Resp BP Pulse Ox 98.3 F 108 18 148/95 96 05/30/19 20:00 05/30/19 20:00 05/30/19 20:00 05/30/19 20:00 05/30/19 20:00 Vital Signs Reviewed: Yes Procedures - Sedation Patient Received Moderate/Deep Sedation with Procedure: No Diagnostics - Vital Signs Vital Signs Temp Pulse Resp BP Pulse Ox 05/30/19 21:08 91 16 126/87 95 05/30/19 21:00 80 16 95 05/30/19 20:08 102 131/90 97 05/30/19 20:07 105 97 05/30/19 20:00 98.3 F 108 18 148/95 96 - Laboratory Lab Results: Lab Results 05/30/19 05/30/19 05/30/19 Range/Units 20:13 20:13 20:13 WBC 17.2 H (3.5-10.8) 10^3/uL RBC 4.63 (3.70-4.87) 10^6 /uL Hgb 13.9 (12.0-16.0) g/dL Hct 42 (35-47) % MCV 90 (80-97) fL MCH 30 (27-31) pg MCHC 34 (31-36) g/dL RDW 14 (10-15) % Plt Count 180 (150-450) 10^3/uL MPV 7.5 (7.4-10.4) fL Neut % (Auto) 85.0 % Lymph % (Auto) 7.1 % Anderson % (Auto) 7.2 % Eos % (Auto) 0.2 % Baso % (Auto) 0.5 % Absolute Neuts (auto) 14.6 H (1.5-7.7) 10^3/ul Absolute Lymphs (auto) 1.2 (1.0-4.8) 10^3/ul Absolute Monos (auto) 1.2 H (0-0.8) 10^3/ul Absolute Eos (auto) 0.0 (0-0.6) 10^3/ul Absolute Basos (auto) 0.1 (0-0.2) 10^3/ul Absolute Nucleated RBC 0.0 10^3/ul Nucleated RBC % 0.0 INR (Anticoag Therapy) 1.18 H (0.82-1.09) Sodium 134 L (135-145) mmol/L Potassium 4.1 (3.5-5.0) mmol/L Chloride 99 L (101-111) mmol/L Carbon Dioxide 24 (22-32) mmol/L Anion Gap 11 (2-11) mmol/L BUN 13 (6-24) mg/dL Creatinine 0.83 (0.51-0.95) mg/dL Est GFR ( Amer) 84.3 (>60) Est GFR (Non-Af Amer) 69.7 (>60) BUN/Creatinine Ratio 15.7 (8-20) Glucose 131 H (70-100) mg/dL Calcium 9.5 (8.6-10.3) mg/dL Total Bilirubin 0.80 (0.2-1.0) mg/dL AST 22 (13-39) U/L ALT 10 (7-52) U/L Alkaline Phosphatase 83 (34-104) U/L Troponin I 0.00 (<0.03) ng/mL Total Protein 7.3 (6.4-8.9) g/dL Albumin 4.3 (3.2-5.2) g/dL Globulin 3.0 (2-4) g/dL Albumin/Globulin Ratio 1.4 (1-3) Result Diagrams: 05/30/19 20:13 05/30/19 20:13 Lab Statement: Any lab studies that have been ordered have been reviewed, and results considered in the medical decision making process. - Radiology cxr Radiology Interpretation Completed By: ED Physician Summary of Radiographic Findings: No acute process. This xray was reviewed and interpreted by the ED physician pending official read. - EKG 2019 Cardiac Rate: NL EKG Rhythm: Sinus Rhythm Summary of EKG Findings: An EKG at 2019 reveals normal sinus rhythm 97bpm, nml axis. ST depressions in II, III, and avF. No prior. No STEMI. No acute changes. ED physician has reviewed and interpreted this EKG. Re-Evaluation - Re-Evaluation First Eval Re-Evaluation Time: 21:10 Change: Unchanged - d/w patient labs w elevated WBC. CXR w/o obv PNA. Will check CTA Second Eval Re-Evaluation Time: 22:00 Change: Improved - CT w KIZZY mass/opacity, pending radiology read. Updated patient. Chest Pain Course/Dx - Course Course Of Treatment: 64 y/o F w hx COPD p/w L sided shoulder and pleuritic CP for one day. - VS tachycardic, afebrile. Labs w WBC 17. Troponin negative, EKG w ST dep inferiorly, no elevations. - CXR w/o large infiltrate, will get CTA chest. - CTA chest w KIZZY mass/opacity, suspect this is causing her pain. Signed out pending CT results and re evaluation. - Diagnoses Provider Diagnoses: Pleuritic chest pain, Leukocytosis Discharge ED - Sign-Out/Discharge Documenting (check all that apply): Sign-Out Patient Signing out patient TO: Luis A Vang - Pt signed out to Dr. Vang at 2200 termination of shift pending CTA read and re-evaluation. Receiving patient FROM: Brandie Lobo - Discharge Plan Referrals: Lucita Mohamud PA [Primary Care Provider] - - Attestation Statements Document Initiated by Ian: Yes Documenting Scribe: Jacques Alvarez Provider For Whom Ian is Documenting (Include Credential): Brandie Lobo Scribe Attestation: Jacques Giron, vijayed for Brandie Lobo on 05/30/19 at 2235. Scribe Documentation Reviewed: Yes Provider Attestation: The documentation as recorded by the Jacques laguna accurately reflects the service I personally performed and the decisions made by Brandie santoyo Status of Scribe Document: Viewed
--- NOTE | 2019-05-30 21:57 | ED ---
Progress - Progress Note Progress Note: This pt is a sign out to Dr. Luis A Vang MD from Dr. Brandie Lobo at shift change 2200 05/30/2019 pending a CTA interpretation and disposition. - Results/Orders Results/Orders: CTA Chest/Thorax: 1. No pulmonary emboli. 2. Left upper lobe pneumonia superimposed on moderately severe emphysema. Followup to resolution recommended. 3. Chronic T7 vertebral body fracture. ED physician has reviewed this report. Re-Evaluation - Re-Evaluation First Eval Re-Evaluation Time: 21:10 Change: Unchanged - d/w patient labs w elevated WBC. CXR w/o obv PNA. Will check CTA Second Eval Re-Evaluation Time: 22:00 Change: Improved - CT w KIZZY mass/opacity, pending radiology read. Updated patient. Course/Dx - Course Course Of Treatment: This pt is a sign out to Dr. Luis A Vang MD from Dr. Brandie Lobo at shift change 2200 05/30/2019 pending a CTA interpretation and disposition. CTA chest/thorax: 1. No pulmonary emboli. 2. Left upper lobe pneumonia superimposed on moderately severe emphysema. Followup to resolution recommended. 3. Chronic T7 vertebral body fracture. She will be discharged with a Dx of PNA. - Diagnoses Provider Diagnoses: Pneumonia Discharge ED - Sign-Out/Discharge Documenting (check all that apply): Patient Departure - discharge - Discharge Plan Condition: Good Disposition: HOME Prescriptions: Amoxicillin/Clavulanate TAB* [Augmentin TAB 875*] 875 mg PO BID #20 tab DOXYcycline CAP(*) [DOXYcycline 100MG CAP(*)] 100 mg PO BID #20 cap Patient Education Materials: COPD (Chronic Obstructive Pulmonary Disease) (ED) , Pneumonia (ED) Referrals: Lucita Mohamud PA [Primary Care Provider] - 1 Week - Billing Disposition and Condition Condition: GOOD Disposition: Home - Attestation Statements Document Initiated by Ian: Yes Documenting Scribe: Chad Maloney Provider For Whom Ian is Documenting (Include Credential): Luis A Vang MD Scribe Attestation: Chad Giron scribed for Luis A Vang MD on 05/31/19 at 1918. Scribe Documentation Reviewed: Yes Provider Attestation: The documentation as recorded by the Chad laguna accurately reflects the service I personally performed and the decisions made by me, Luis A Vang MD Status of Ian Document: Viewed
[2019-05-30] MEDS ORDERED: Amoxicillin/Clavulanate TAB* 875 MG PO ONE (22:46)
[2019-05-30] MEDS ORDERED: DOXYcycline CAP(*) 100 MG PO ONE (22:46)
[2019-05-30 22:53] VITALS: BP 119/90
== END 2019-05-30 22:54 | disposition home or self-care (01) ==
LOC: ED 19:54
DX: J18.9 Pneumonia, unspecified organism (principal); J44.9 Chronic obstructive pulmonary disease, unspecified; I10 Essential (primary) hypertension; F17.210 Nicotine dependence, cigarettes, uncomplicated
CPT/HCPCS: 36415; 71046; 71275; 80053; 84484; 85025; 85610; 93005; 99283; A9270-GY; Q9967

== ENCOUNTER 2019-06-10 15:45 | Emergency (ER) | payer OTHER ==
--- NOTE | 2019-06-10 16:37 | ED ---
Nausea/Vomiting/Diarrhea HPI - HPI Summary HPI Summary: Patient complains of nausea vomiting, upper abdominal cramping, decreased by mouth intake, he aches, upper back pain 1 week. Patient was started on Augmentin and doxycycline for pneumonia on 05/30, took 4 days worth of antibiotics and then stopped believing that symptoms of nausea vomiting abdominal pain were due to Augmentin and doxycycline. Patient seemed to improve , and then got worse again. Denies known fever, cough, sore throat, CP, SOB, diarrhea, change in urine, vaginal symptoms. Medical history COPD. Abdominal surgical history is none. - History of Current Complaint Chief Complaint: EDNauseaVomitDiarrh Stated Complaint: GENERAL ILLNESS PER EMS Time Seen by Provider: 06/10/19 16:34 Hx Obtained From: Patient Onset/Duration: Gradual Onset, Lasting Days Severity Initially: Moderate Severity Currently: None Pain Intensity: 0 Pain Scale Used: 0-10 Numeric Location: Discrete At: RUQ, Discrete At: LUQ, Epigastric Character: Sharp, Burning Aggravating Factor(s): Food Alleviating Factor(s): Spontaneous Resolution Nausea/Vomiting Presence: Nauseated, Vomiting Vomiting Characteristics: Nonbilious Diarrhea Presence: No - Allergies/Home Medications Allergies/Adverse Reactions: Allergies Allergy/AdvReac Type Severity Reaction Status Date / Time No Known Allergies Allergy Verified 09/16/16 11:15 Home Medications: Home Medications Mometasone/Formoter 200/5 MDI* [Dulera 200/5 MDI*] 2 puff INH BID 09/16/16 [ History Confirmed 06/10/19] Albuterol HFA INHALER* [Ventolin HFA Inhaler*] 1 puff PO QID PRN 01/30/18 [ History Confirmed 06/10/19] Amoxicillin/Clavulanate TAB* [Augmentin TAB 875*] 875 mg PO BID #20 tab [Rx Confirmed 06/10/19] DOXYcycline CAP(*) [DOXYcycline 100MG CAP(*)] 100 mg PO BID #20 cap 05/30/19 [ Rx Confirmed 06/10/19] Cholecalciferol TAB* [Vitamin D TAB*] 2,000 units PO DAILY 06/10/19 [History Confirmed 06/10/19] Omeprazole 20 mg PO DAILY 30 Days #30 capsule. 06/10/19 [Rx] Ondansetron ODT TAB* [Zofran 4 MG Odt TAB*] 4 mg PO Q8H PRN 4 Days #14 tab.odt 06/10/19 [Rx] PMH/Surg Hx/FS Hx/Imm Hx Endocrine/Hematology History: Denies: Hx Diabetes Cardiovascular History: Reports: Hx Hypertension Respiratory History: Reports: Hx Chronic Obstructive Pulmonary Disease (COPD) History: Denies: Hx Renal Disease Musculoskeletal History: Reports: Hx Osteoporosis Denies: Hx Rheumatoid Arthritis Sensory History: Reports: Hx Contacts or Glasses Denies: Hx Hearing Aid Opthamlomology History: Reports: Hx Contacts or Glasses EENT History: Denies: Hx Deafness - Surgical History Surgery Procedure, Year, and Place: TONSILLECTOMY A CHILD Infectious Disease History: No Infectious Disease History: Denies: Traveled Outside the [place] in Last 30 Days - Family History Known Family History: Positive: Unknown - Pt cannot recall other FHx, Cardiac Disease - Social History Alcohol Use: None Hx Substance Use: Yes Substance Use Type: Reports: Marijuana Substance Use Comment - Amount & Last Used: daily usage Hx Tobacco Use: Yes Smoking Status (MU): Light Every Day Tobacco Smoker Type: Cigarettes Amount Used/How Often: 1 ppd Length of Time of Smoking/Using Tobacco: 48 yrs Have You Smoked in the Last Year: Yes Review of Systems Constitutional: Negative Eyes: Negative ENT: Negative Cardiovascular: Negative Respiratory: Negative Positive: Abdominal Pain, Vomiting, Nausea Genitourinary: Negative Musculoskeletal: Other Skin: Negative Neurological/Mental Status: Negative Psychological: Normal All Other Systems Reviewed And Are Negative: Yes Physical Exam - Summary Physical Exam Summary: Tenderness in paraspinal muscles of thoracic spine bilaterally. Abdomen tender epigastrium and left upper quadrant. Abdominal exam otherwise unremarkable. Triage Information Reviewed: Yes Vital Signs On Initial Exam: Initial Vitals Temp Pulse Resp BP Pulse Ox 99.6 F 103 18 140/85 95 06/10/19 15:50 06/10/19 15:50 06/10/19 15:50 06/10/19 15:50 06/10/19 15:50 Vital Signs Reviewed: Yes Appearance: Positive: Well-Appearing Skin: Positive: Warm Head/Face: Positive: Normal Head/Face Inspection Eyes: Positive: Normal Neck: Positive: Supple Respiratory/Lung Sounds: Positive: Clear to Auscultation Cardiovascular: Positive: Normal Abdomen Description: Positive: Other: Musculoskeletal: Positive: Normal Neurological: Positive: Normal Psychiatric: Positive: Normal AVPU Assessment: Alert - Irina Coma Scale Best Eye Response: 4 - Spontaneous Best Motor Response: 6 - Obeys Commands Best Verbal Response: 5 - Oriented Coma Scale Total: 15 Procedures - Sedation Patient Received Moderate/Deep Sedation with Procedure: No Diagnostics - Vital Signs Vital Signs Temp Pulse Resp BP Pulse Ox 06/10/19 15:50 99.6 F 103 18 140/85 95 - Laboratory Result Diagrams: 06/10/19 16:43 06/10/19 16:43 Lab Statement: Any lab studies that have been ordered have been reviewed, and results considered in the medical decision making process. Naus/Vom/Diarrhea Course/Dx - Course Course Of Treatment: Patient complains of nausea vomiting, upper abdominal cramping, decreased by mouth intake, he aches, upper back pain 1 week. Patient was started on Augmentin and doxycycline for pneumonia on 05/30, took 4 days worth of antibiotics and then stopped believing that symptoms of nausea vomiting abdominal pain were due to Augmentin and doxycycline. Patient seemed to improve, and then got worse again. Denies known fever, cough, sore throat, CP, SOB, diarrhea, change in urine, vaginal symptoms. Medical history COPD. Abdominal surgical history is none. Vital signs within normal limits. Hemoglobin 11.0, dropped from 13.9 10 days ago. Hemoccult-positive. Labs otherwise unremarkable. Ultrasound gallbladder negative. CT abdomen and pelvis positive for gastritis. Symptoms improved with GI cocktail. Patient started on omeprazole. Advised to follow-up with GI for further evaluation. - Differential Dx/Diagnosis Provider Diagnosis: Gastritis, Anemia, Occult blood positive stool Condition At Discharge: Stable Discharge ED - Sign-Out/Discharge Documenting (check all that apply): Patient Departure - Discharge Plan Condition: Stable Disposition: HOME Prescriptions: Omeprazole 20 mg PO DAILY 30 Days #30 capsule. Ondansetron ODT TAB* [Zofran 4 MG Odt TAB*] 4 mg PO Q8H PRN 4 Days #14 tab.odt PRN Reason: Nausea Patient Education Materials: Gastritis (ED) Referrals: Lucita Mohamud PA [Primary Care Provider] - Lupillo Crowley MD [Medical Doctor] - Additional Instructions: Take omeprazole daily. Take Zofran as directed for nausea. Use Maalox for breakthrough pain. Follow-up with GI Dr. Crowley for further evaluation. Return to the ED for any new or worsening symptoms. - Billing Disposition and Condition Condition: STABLE Disposition: Home
[2019-06-10 16:52] LABS: ABS Basophils 0.1 10^3/ul (0-0.2); ABS Eosinophils 0.2 10^3/ul (0-0.6); ABS Lymphocytes 1.4 10^3/ul (1.0-4.8); ABS Monocytes 0.6 10^3/ul (0-0.8); ABS Neutrophils 7.4 10^3/ul (1.5-7.7); Eosinophil % 2.1 %; Hematocrit 32 % (35-47); Lymphocyte % 14.7 %; Mean Corpuscular HGB Conc 35 g/dL (31-36); Mean Corpuscular Hemoglobin 31 pg (27-31); Mean Corpuscular Volume 90 fL (80-97); Mean Platelet Volume 6.6 fL (7.4-10.4); Platelet Count 397 10^3/uL (150-450); Red Blood Count 3.54 10^6 /uL (3.70-4.87); Red Cell Distribution Width 13 % (10-15); White Blood Count 9.8 10^3/uL (3.5-10.8)
[2019-06-10 17:09] LABS: Albumin 3.6 g/dL (3.2-5.2); Albumin/Globulin Ratio 1.6 (1-3); BUN/Creatinine Ratio 15.2 (8-20); C Reactive Protein 3.6 mg/L (<8.01); Calcium 8.6 mg/dL (8.6-10.3); EGFR African American 109.8 (>60); EGFR Non-African American 90.7 (>60); Globulin 2.2 g/dL (2-4); Potassium 4.1 mmol/L (3.5-5.0); Total Bilirubin 0.3 mg/dL (0.2-1.0); Total Protein 5.8 g/dL (6.4-8.9)
[2019-06-10] MEDS ORDERED: Iohexol 300* (CONTRAST) 10 ML SDV IV ONE (17:53)
[2019-06-10] MEDS ORDERED: Al Hydrox/Mg Hydrox/Simet LIQ* 30 ML UDC PO ONE (18:36)
[2019-06-10] MEDS ORDERED: Lidocaine 2% VISCOUS* 15 ML UDC PO ONE (18:36)
[2019-06-10] MEDS ORDERED: Pantoprazole IV* 40 MG IV ONE (18:37)
[2019-06-10 18:40] LABS: Influenza A Molecular Negative (Negative); Influenza B Molecular Negative (Negative)
[2019-06-10] MEDS ORDERED: Ondansetron INJ* 2 MG/ML VIAL IV ONE (19:33)
[2019-06-10 19:40] VITALS: BP 153/90
[2019-06-10 19:47] LABS: Urine Appearance Clear; Urine Bilirubin Negative (Negative); Urine Blood Negative (Negative); Urine Color Colorless; Urine Glucose Negative (Negative); Urine Ketones Negative (Negative); Urine Nitrite Negative (Negative); Urine Protein Negative (Negative); Urine Specific Gravity 1.025 (1.010-1.030); Urine Urobilinogen Negative (Negative)
== END 2019-06-10 19:39 | disposition home or self-care (01) ==
LOC: ED 15:45
DX: K29.70 Gastritis, unspecified, without bleeding (principal); D64.9 Anemia, unspecified; R19.5 Other fecal abnormalities; R11.2 Nausea with vomiting, unspecified; R10.10 Upper abdominal pain, unspecified; J44.9 Chronic obstructive pulmonary disease, unspecified; I10 Essential (primary) hypertension; F17.210 Nicotine dependence, cigarettes, uncomplicated
CPT/HCPCS: 36415; 74177; 76705; 80053; 81003; 82270; 83690; 85025; 86140; 96374; 96375; 99284; A9270-GY; J2405; Q9967

== ENCOUNTER 2021-07-19 12:06 | Inpatient (IN) ==
[2021-07-19] MEDS ORDERED: NS 0.9% 500 ml BAG 500 ML IV ONE (14:32)
[2021-07-19] MEDS ORDERED: Albuterol HFA INHALER 8 gm MDI INH ONE (14:34)
[2021-07-19] MEDS ORDERED: Dexamethasone IV 4 MG/ML VIAL 1 ml VIAL IV SLOW PU ONE (14:34)
[2021-07-19 15:57] LABS: ABS Basophils 0.1 10^3/ul (0-0.2); ABS Lymphocytes 1.9 10^3/ul (1.0-4.8); ABS Neutrophils 7.7 10^3/ul (1.5-7.7); Eosinophil % 0.3 %; Hematocrit 49 % (35-47); Hemoglobin 16.4 g/dL (12.0-16.0); Lymphocyte % 17.6 %; Mean Corpuscular HGB Conc 34 g/dL (31-36); Mean Corpuscular Hemoglobin 31 pg (27-31); Mean Corpuscular Volume 91 fL (80-97); Mean Platelet Volume 7.6 fL (7.4-10.4); Platelet Count 256 10^3/uL (150-450); Red Blood Count 5.36 10^6 /uL (3.70-4.87); Red Cell Distribution Width 13 % (10-15); White Blood Count 10.7 10^3/uL (3.5-10.8)
[2021-07-19 16:20] LABS: Albumin 4.6 g/dL (3.2-5.2); Albumin/Globulin Ratio 2.1 (1-3); C Reactive Protein 1.52 mg/L (<8.01); Calcium 9.6 mg/dL (8.6-10.3); Globulin 2.2 g/dL (2-4); Potassium 4.7 mmol/L (3.5-5.0); Total Bilirubin 0.6 mg/dL (0.2-1.0); Total Protein 6.8 g/dL (6.4-8.9); eGFR CKD-EPI 84.8 (>60)
[2021-07-19] MEDS ORDERED: Albuterol HFA INHALER 8 gm MDI INH PRN (17:29)
[2021-07-19] MEDS ORDERED: Umeclidinium 62.5 MDI(NF) MDI INH SCH (18:00)
[2021-07-19 18:02] LABS: Magnesium 2.2 mg/dL (1.9-2.7)
[2021-07-19 18:07] LABS: High Sensitivity Troponin 1 Hr 11 pg/mL (<15)
[2021-07-19] MEDS: Enoxaparin 40 MG/0.4 ML SYR SUBCUT SCH (20:35)
[2021-07-19] MEDS ORDERED: Budesonide/Formote 160/4.5(NF) MDI INH SCH (21:00)
[2021-07-19] MEDS ORDERED: SPIRIVA Respimat (tiotropium) 2.5 mcg/inh Inhaler INH SCH (21:00)
[2021-07-20] MEDS: Mometasone/Formoter 200/5 MDI INH SCH ×3 (02:04→19:34)
[2021-07-20 05:17] LABS: ABS Monocytes 0.4 10^3/ul (0-0.8); ABS Neutrophils 4.7 10^3/ul (1.5-7.7); Hematocrit 43 % (35-47); Hemoglobin 14.4 g/dL (12.0-16.0); Lymphocyte % 16.2 %; Mean Corpuscular HGB Conc 34 g/dL (31-36); Mean Corpuscular Hemoglobin 31 pg (27-31); Mean Corpuscular Volume 91 fL (80-97); Mean Platelet Volume 7.5 fL (7.4-10.4); Nucleated Red Blood Cells % 0.1; Platelet Count 233 10^3/uL (150-450); Red Blood Count 4.71 10^6 /uL (3.70-4.87); Red Cell Distribution Width 13 % (10-15); White Blood Count 6.1 10^3/uL (3.5-10.8)
[2021-07-20 05:53] LABS: Calcium 8.9 mg/dL (8.6-10.3); Magnesium 2.2 mg/dL (1.9-2.7); Potassium 4.8 mmol/L (3.5-5.0); eGFR CKD-EPI 96.5 (>60)
[2021-07-20] MEDS ORDERED: Albuterol/Ipratropium NEB.SOL (2.5/0.5 MG) 3 ML NEB.SOLN INH SCH (15:00)
[2021-07-20] MEDS: cefTRIAXone 1 gm/50 mL D5W 1 GM/50 ML BAG IV SCH (15:25)
[2021-07-20] MEDS: Albuterol HFA INHALER 8 gm MDI INH SCH ×3 (15:25→23:51)
[2021-07-20] MEDS: Enoxaparin 40 MG/0.4 ML SYR SUBCUT SCH (17:49)
[2021-07-21] MEDS: Albuterol HFA INHALER 8 gm MDI INH SCH ×5 (03:28→20:44)
[2021-07-21 07:45] LABS: ABS Lymphocytes 2.2 10^3/ul (1.0-4.8); ABS Monocytes 0.8 10^3/ul (0-0.8); ABS Neutrophils 4.1 10^3/ul (1.5-7.7); Eosinophil % 0.3 %; Hematocrit 39 % (35-47); Hemoglobin 13.1 g/dL (12.0-16.0); Lymphocyte % 30.3 %; Mean Corpuscular HGB Conc 34 g/dL (31-36); Mean Corpuscular Hemoglobin 31 pg (27-31); Mean Corpuscular Volume 91 fL (80-97); Mean Platelet Volume 7.6 fL (7.4-10.4); Platelet Count 218 10^3/uL (150-450); Red Blood Count 4.27 10^6 /uL (3.70-4.87); Red Cell Distribution Width 13 % (10-15); White Blood Count 7.2 10^3/uL (3.5-10.8)
[2021-07-21 08:04] LABS: Calcium 8.9 mg/dL (8.6-10.3); Potassium 4.1 mmol/L (3.5-5.0); eGFR CKD-EPI 96.5 (>60)
[2021-07-21] MEDS: Mometasone/Formoter 200/5 MDI INH SCH ×2 (08:24→20:44)
[2021-07-21] MEDS: cefTRIAXone 1 gm/50 mL D5W 1 GM/50 ML BAG IV SCH (14:39)
[2021-07-21] MEDS: Enoxaparin 40 MG/0.4 ML SYR SUBCUT SCH (18:34)
[2021-07-21] MEDS: SPIRIVA Respimat (tiotropium) 2.5 mcg/inh Inhaler INH SCH (20:48)
[2021-07-22 01:01] LABS: Urine Appearance Clear; Urine Bilirubin Negative (Negative); Urine Blood Negative (Negative); Urine Color Yellow; Urine Glucose 1+(50 mg/dL) (Negative); Urine Ketones Trace (Negative); Urine Nitrite Negative (Negative); Urine Protein Negative (Negative); Urine Specific Gravity 1.028 (1.002-1.030); Urine Urobilinogen Negative (Negative)
[2021-07-22] MEDS: Albuterol HFA INHALER 8 gm MDI INH SCH ×4 (07:59→20:16)
[2021-07-22] MEDS: Mometasone/Formoter 200/5 MDI INH SCH ×2 (07:59→20:16)
[2021-07-22 08:55] LABS: ABS Lymphocytes 2.3 10^3/ul (1.0-4.8); ABS Monocytes 0.9 10^3/ul (0-0.8); ABS Neutrophils 3.9 10^3/ul (1.5-7.7); Eosinophil % 0.6 %; Hematocrit 42 % (35-47); Hemoglobin 13.9 g/dL (12.0-16.0); Lymphocyte % 31.5 %; Mean Corpuscular HGB Conc 33 g/dL (31-36); Mean Corpuscular Hemoglobin 30 pg (27-31); Mean Corpuscular Volume 92 fL (80-97); Mean Platelet Volume 7.4 fL (7.4-10.4); Nucleated Red Blood Cells % 0.1; Platelet Count 226 10^3/uL (150-450); Red Blood Count 4.57 10^6 /uL (3.70-4.87); Red Cell Distribution Width 13 % (10-15); White Blood Count 7.2 10^3/uL (3.5-10.8)
[2021-07-22 09:23] LABS: Calcium 8.9 mg/dL (8.6-10.3); Potassium 3.9 mmol/L (3.5-5.0); eGFR CKD-EPI 98.6 (>60)
[2021-07-22] MEDS ORDERED: Perflutren Lipid Microsphere 3 ML VIAL ONE (10:49)
[2021-07-22] MEDS: cefTRIAXone 1 gm/50 mL D5W 1 GM/50 ML BAG IV SCH (13:53)
[2021-07-22] MEDS: Enoxaparin 40 MG/0.4 ML SYR SUBCUT SCH ×2 (17:35→17:38)
[2021-07-22] MEDS: SPIRIVA Respimat (tiotropium) 2.5 mcg/inh Inhaler INH SCH (20:16)
[2021-07-23 05:54] LABS: Calcium 8.5 mg/dL (8.6-10.3); Potassium 4.1 mmol/L (3.5-5.0); eGFR CKD-EPI 99.4 (>60)
[2021-07-23] MEDS: Mometasone/Formoter 200/5 MDI INH SCH (07:32)
[2021-07-23] MEDS: Albuterol HFA INHALER 8 gm MDI INH SCH ×3 (07:33→14:40)
[2021-07-23 15:44] VITALS: BP 157/87
== END 2021-07-23 16:50 | disposition home health service (06) | DRG 140 ==
LOC: ED 12:06 → EDHOLD 12:06 → SUATTDRO 17:25 → MED 19:50 → SUATTDRO 07-21 18:29 → UNDODISIN 07-23 16:50
PROVIDERS: ADMIT Nurse Practitioner Family; ATTEND Internal Medicine